=== PATIENT | female | born 1980 | race Two or more races ===

== ENCOUNTER 2018-03-15 09:51 | Outpatient (CLI) | payer OTHER | END 2018-03-15 10:08 | disposition home or self-care (01) | LOC: MAMO-SONO 09:51 | DX: N64.4 Mastodynia (principal); Z12.31 Encounter for screening mammogram for malignant neoplasm of breast ==

== ENCOUNTER 2018-05-12 18:02 | Emergency (ER) | payer OTHER ==
[~2018-05-12] VITALS: Ht 167.6 cm; Wt 55.3 kg
[2018-05-12] MEDS ORDERED: NP THYROID30 MG (18:55)
[2018-05-12] MEDS ORDERED: PROGESTERONE200 MG (18:56)
[2018-05-12] MEDS ORDERED: MENEST0.3 MG (18:58)
== END 2018-05-12 21:52 | disposition home or self-care (01) ==
LOC: ER 18:02
DX: M62.830 Muscle spasm of back (principal); M94.0 Chondrocostal junction syndrome [Tietze]